=== PATIENT | male | born 1965 | race Caucasian/White ===

== ENCOUNTER 2017-04-16 12:26 | Emergency (ER) | payer OTHER ==
[~2017-04-16] VITALS: Ht 177.8 cm; Wt 152.0 kg
--- NOTE | 2017-04-16 13:12 | PHYS DOC ---
Past Medical History Past Medical History: Hypertension, Other Additional Past Medical Histor: mental health Past Surgical History: Other Additional Past Surgical Histo: bilat knee scope and bilat shoulder surgery Alcohol Use: Occasionally Drug Use: None Adult General Chief Complaint Chief Complaint: LOWER EXT PAIN HPI HPI 51-year-old morbidly obese male with a history of DVT on Coumadin after diagnoses 1 month ago. At the time of diagnosis patient had right lower extremity swelling with asymmetry. Over the last day patient has noticed mild swelling of the right foot which she states is new. There is no redness or pain. No fevers chills sweats or shaking chills. Patient discussed this with his primary care provider and was referred for ultrasound of the leg. This was done and patient was referred to the emergency department for reevaluation and it seems for evaluation of the comparison between this and his prior study and discussion thereof to rule out the possibility of need for acute intervention. He has no chest pain or shortness of breath and otherwise feels baseline. The only change from his health status over the last month is that his right foot is mildly swollen Review of Systems Review of Systems Constitutional: Denies fever or chills [] Eyes: Denies change in visual acuity, redness, or eye pain [] HENT: Denies nasal congestion or sore throat [] Respiratory: Denies cough or shortness of breath [] Cardiovascular: No additional information not addressed in HPI [] GI: Denies abdominal pain, nausea, vomiting, bloody stools or diarrhea [] : Denies dysuria or hematuria [] Musculoskeletal: Denies back pain or joint pain [] Integument: Denies rash or skin lesions [] Neurologic: Denies headache, focal weakness or sensory changes [] Endocrine: Denies polyuria or polydipsia [] Allergies Allergies Allergies Coded Allergies Type Severity Reaction Last Updated Verified No Known Drug Allergies 04/16/17 No Physical Exam Physical Exam Early obese male no acute distress clear lungs regular rate and rhythm no tachycardia or hypoxia. Right lower extremity is larger than the left lower extremity below the knee which patient says has been his baseline for a month since his prior diagnosis of DVT, the compartments are soft with no acute skin changes. He does have mild 1+ nonpitting edema right foot. There is a small amount of asymmetry compared with the left foot however he has good capillary refill and foot is not tense and has no skin changes. Carlos is unremarkable Constitutional: Well developed, well nourished, no acute distress, non-toxic appearance. [] HENT: Normocephalic, atraumatic, bilateral external ears normal, oropharynx moist, no oral exudates, nose normal. [] Eyes: PERRLA, EOMI, conjunctiva normal, no discharge. [] Neck: Normal range of motion, no tenderness, supple, no stridor. [] Cardiovascular:Heart rate regular rhythm, no murmur [] Lungs & Thorax: Bilateral breath sounds clear to auscultation [] Abdomen: Bowel sounds normal, soft, no tenderness, no masses, no pulsatile masses. [] Skin: Warm, dry, no erythema, no rash. [] Back: No tenderness, no CVA tenderness. [] Extremities: No tenderness, no cyanosis, no clubbing, ROM intact, no edema. [] Neurologic: Alert and oriented X 3, normal motor function, normal sensory function, no focal deficits noted. [] Psychologic: Affect normal, judgement normal, mood normal. [] Current Patient Data Vital Signs Vital Signs Date Time Temp Pulse Resp B/P (MAP) Pulse Ox O2 Delivery O2 Flow Rate FiO2 04/16/17 12:47 98.5 110 18 182/100 (127) 97 Room Air 98.5 Lab Values Laboratory Tests Test 04/16/17 14:40 Prothrombin Time 21.9 SEC (11.7-14.0) H Prothrombin Time INR 2.1 (0.8-1.1) H EKG EKG [] Radiology/Procedures Radiology/Procedures [] Course & Med Decision Making Course & Med Decision Making Pertinent Labs and Imaging studies reviewed. (See chart for details) Signs and symptoms consistent with lower extremity asymmetry secondary to known DVT. Repeat study just done because of mild swelling of the foot. Patient has no evidence of complication and INR is therapeutic. no further workup or treatment indicated. Patient agrees with outpatient follow-up and strict return precautions will be given Dragon Disclaimer Dragon Disclaimer This electronic medical record was generated, in whole or in part, using a voice recognition dictation system. Departure Departure Impression: Primary Impression: Deep vein thrombosis (DVT) Disposition: 01 HOME, SELF-CARE Condition: STABLE Referrals: MICHA CORLEY (PCP) Patient Instructions: Deep Vein Thrombosis Additional Instructions: Your INR is therapeutic at 2.1 today. This means that her blood is appropriately thinned from your Coumadin therapy to protect U from progression of your DVT. Your mild foot swelling in the right leg is unremarkable today and you have no signs of skin infection or other complication. He may find it helpful to elevate the foot whenever possible. Follow-up with your doctor for reevaluation and continue your Coumadin as prescribed. SHAWNEE RIOS MD Apr 16, 2017 13:12
[2017-04-16 15:05] LABS: INR 2.1 (0.8-1.1); PROTHROMBIN TIME PATIENT 21.9 SEC (11.7-14.0)
[2017-04-16 16:30] VITALS: BP 168/87
== END 2017-04-16 17:17 | disposition home or self-care (01) ==
LOC: ER 12:26
DX: I82.401 Acute embolism and thrombosis of unspecified deep veins of right lower extremity (principal); I10 Essential (primary) hypertension; Z86.718 Personal history of other venous thrombosis and embolism; Z79.01 Long term (current) use of anticoagulants
CPT/HCPCS: 36415; 85610; 99283

== ENCOUNTER → 2017-04-16 | Outpatient (CLI) | payer OTHER ==
--- NOTE | 2017-04-16 11:08 | KCIC ---
Right lower extremity venous duplex study 04/16/2017 Clinical History: Right leg swelling. History of DVT diagnosed 3 weeks ago at . Technique: Using a combination of real time ultrasound imaging and color-flow and pulse Doppler imaging techniques along with graded compression and augmentation, duplex evaluation of the deep venous system of the right lower extremity was performed. Multiple images were obtained. Findings: No previous imaging studies are available for comparison. Echogenic occlusive thrombus consistent with DVT is seen extending from the superior aspect of the right posterior tibial veins to involve the right popliteal and right superficial femoral veins. The right common femoral vein is patent. IMPRESSION: DVT is seen extending from the right calf to involve the right popliteal and right superficial femoral veins as outlined above. Electronically signed by: Long Shay MD (04/16/2017 11:04 AM) [email or web address]
== END | disposition home or self-care (01) ==
LOC: KCIC US 09:13
PROVIDERS: ATTEND Family Medicine
DX: M79.89 Other specified soft tissue disorders (principal); Z86.718 Personal history of other venous thrombosis and embolism
CPT/HCPCS: 93971